=== PATIENT | male | born 1985 | race American Indian/Alaskan Native ===

== ENCOUNTER 2020-12-29 17:04 | Emergency (ER) | payer SELFPAY ==
[2020-12-29 17:13] VITALS: BP 142/102
--- NOTE | 2020-12-29 18:06 | XRay Report ---
CHEST 2 VIEWS INDICATION / CLINICAL INFORMATION: cough and sob. COMPARISON: None available. FINDINGS: SUPPORT DEVICES: None. HEART / MEDIASTINUM: No significant abnormality. LUNGS / PLEURA: No significant pulmonary or pleural abnormality. No pneumothorax. ADDITIONAL FINDINGS: No significant additional findings. IMPRESSION: No significant abnormality Signer Name: Hong Kaur MD FACR Signed: 12/29/2020 6:02 PM Workstation Name: [id number][id number]
--- NOTE | 2020-12-29 18:34 | Emergency Department Report ---
- General Chief Complaint: Medical Clearance Stated Complaint: NO TASTE/BODYACHE/SICK Time Seen by Provider: 12/29/20 17:17 Source: patient Mode of arrival: Ambulatory Limitations: No Limitations - History of Present Illness Initial Comments: 35-year-old F [place] male with asthma department complaining of a 2-day history of spontaneous onset of congestion and coryza associated with some some malaise and fever sensation and chills. Symptoms have have worsened today which spurred his visit emergency department seeking further evaluation and treatment options is suspicion for a viral infestation such as COVID-19 but this has no reported contact with any COVID-19. Reports no hemoptysis, no hematemesis, no diarrhea, no vomiting MD Complaint: sore throat, rhinorrhea, nasal congestion Severity: moderate Quality: aching Consistency: constant Improves With: nothing Worsens With: nothing Associated Symptoms: myalgias, nasal congestion. denies: confusion, right sweats, weight loss, hoarseness, ear pain - Related Data Previous Rx's Medication Instructions Recorded Last Taken Type Albuterol Mdi (or & Nicu Only) 1 puff IH Q4-6H PRN #1 inha 12/29/20 Unknown Rx [ProAir HFA Inhaler] guaiFENesin/CODEINE [Robitussin AC] 5 ml PO Q6H PRN #120 ml 12/29/20 Unknown Rx predniSONE [Deltasone] 20 mg PO QDAY #5 tab 12/29/20 Unknown Rx Allergies Allergy/AdvReac Type Severity Reaction Status Date / Time No Known Allergies Allergy Unverified 12/29/20 17:07 ED Review of Systems ROS: Stated complaint: NO TASTE/BODYACHE/SICK Other details as noted in HPI Comment: All other systems reviewed and negative ED Past Medical Hx - Past Medical History Previous Medical History?: No - Surgical History Hx Cholecystectomy: Yes - Medications Home Medications: Home Medications Medication Instructions Recorded Confirmed Last Taken Type Albuterol Mdi (or & Nicu Only) 1 puff IH Q4-6H PRN #1 inha 12/29/20 Unknown Rx [ProAir HFA Inhaler] guaiFENesin/CODEINE [Robitussin AC] 5 ml PO Q6H PRN #120 ml 12/29/20 Unknown Rx predniSONE [Deltasone] 20 mg PO QDAY #5 tab 12/29/20 Unknown Rx ED Physical Exam - General Limitations: No Limitations General appearance: alert, in no apparent distress - Head Head exam: Present: atraumatic, normocephalic - Eye Eye exam: Present: normal appearance - ENT ENT exam: Present: mucous membranes moist, other (Nasal congestion bilateral left is worse worse than the right. Airway patent tongue uvula midline) - Neck Neck exam: Present: normal inspection - Respiratory Respiratory exam: Present: normal lung sounds bilaterally, rhonchi. Absent: respiratory distress - Cardiovascular Cardiovascular Exam: Present: regular rate, normal rhythm. Absent: systolic murmur, diastolic murmur, rubs, gallop - GI/Abdominal GI/Abdominal exam: Present: soft, normal bowel sounds - Rectal Rectal exam: Present: deferred - Extremities Exam Extremities exam: Present: normal inspection - Back Exam Back exam: Present: normal inspection - Neurological Exam Neurological exam: Present: alert, oriented X3 - Psychiatric Psychiatric exam: Present: normal affect, normal mood - Skin Skin exam: Present: warm, dry, intact, normal color. Absent: rash ED Course Vital Signs 12/29/20 12/29/20 17:11 17:12 Temperature 98.9 F Pulse Rate 62 Respiratory 18 Rate Blood Pressure 142/102 [Right] O2 Sat by Pulse 99 Oximetry ED Medical Decision Making - Radiology Data Radiology results: report reviewed Referring Physician:OLEKSANDR GIBBSPatient Name:PAIGE Nunez ID:[id number] of :[id number]:MaleAccession:[id number] Date:[id number] Status:Finalized Findings [address] [address] XRay Report Signed Patient: PAIGE FLORES MR#: [id number] : 1985 Acct:[id number] Age/Sex: 35 / M ADM Date: 12/29/20 Loc: ED Attending Dr: Ordering Physician: FLIP ARTIS Date of Service: 12/29/20 Procedure(s): XR chest routine 2V Accession Number(s): [id number] cc: FLIP ARTIS Fluoro Time In Minutes: CHEST 2 VIEWS INDICATION / CLINICAL INFORMATION: cough and sob. COMPARISON: None available. FINDINGS: SUPPORT DEVICES: None. HEART / MEDIASTINUM: No significant abnormality. LUNGS / PLEURA: No significant pulmonary or pleural abnormality. No pneumothorax. ADDITIONAL FINDINGS: No significant additional findings. IMPRESSION: No significant abnormality Signer Name: Hong Kaur MD FACR Signed: 12/29/2020 6:02 PM Workstation Name: [email or web address] Transcribed By: Dictated By: Hong Kaur MD Electronically Authenticated By: Hong Kaur MD Signed Date/Time: 12/29/201801 DD/ 01 TD/TT: - Medical Decision Making This 35-year-old male patient presents with symptoms suspicious for likely viral upper respiratory tract infection. Differential includes bacterial pneumonia, sinusitis, allergic rhinitis,. Do not suspect underlying Cardiopulmonary process. I considered but think unlikely dangerous cause of this patient symptoms to include acute coronary syndrome, CHF or COPD exacerbations, pneumonia, pneumothorax. Patient is nontoxic appearing and not in need of emergent medical intervention. This patient presents to the emergency department with fever and lower respiratory symptoms concerning for viral syndrome including flu and COVID-19. Patient has suspicion and is for COVID-19 infection. Differential diagnosis includes other viral causes of lower respiratory symptoms, pneumonia, asthma, bronchitis. Patient is well-appearing with acceptable vitals, lacks comorbidities admission and a reassuring physical examination and is safe to be discharged home nasal swab for COVID testing is recommended. Provide strict return precautions and instructions on self isolation/quarantine and anticipatory guidance. Plan: Reassurance, reassessment, [id number] medications, discharge with PCP follow-up Critical care attestation.: If time is entered above; I have spent that time in minutes in the direct care of this critically ill patient, excluding procedure time. ED Disposition Clinical Impression: Viral syndrome, Cough Disposition: DC-01 TO HOME OR SELFCARE Is pt being admited?: No Does the pt Need Aspirin: No Condition: Stable Instructions: Viral Respiratory Infection, [id number], Cool Mist Vaporizer, Cough, Adult, Hand Washing, COVID-19, COVID-19: How to Protect Yourself and Others - [facility] Additional Instructions: It is recommended that you follow-up a local facility and obtain a Covid test Prescriptions: predniSONE [Deltasone] 20 mg PO QDAY #5 tab Albuterol Mdi (or & Nicu Only) [ProAir HFA Inhaler] 1 puff IH Q4-6H PRN #1 inha PRN Reason: Cough guaiFENesin/CODEINE [Robitussin AC] 5 ml PO Q6H PRN #120 ml PRN Reason: Cough Referrals: PRIMARY CARE, [Primary Care Provider] - 3-5 Days [facility] [Provider Group] - 3-5 Days
== END 2020-12-29 18:00 | disposition home or self-care (01) ==
LOC: EDBD → ED 17:04
DX: B34.9 Viral infection, unspecified (principal); R05 Cough; Z79.899 Other long term (current) drug therapy; Z90.49 Acquired absence of other specified parts of digestive tract
CPT/HCPCS: 71046; 99283